=== PATIENT | male | born 1995 | race Two or more races ===

== ENCOUNTER 2024-01-14 21:41 | Emergency (ER) | payer OTHER ==
[~2024-01-14] VITALS: Ht 172.7 cm; Wt 116.8 kg
[2024-01-15] MEDS ORDERED: HYDR-4902 PO (04:02)
[2024-01-15] MEDS: HYDROcodone-ACET 5/325MG TAB PO ONE (05:02)
[2024-01-15] MEDS: KETOROLAC TROMETH 60MG/2ML VIAL IM ONE (05:02)
[2024-01-15] MEDS: DexAMETHasone SOD PHOS 10MG/1ML VIAL INJ IM ONE (05:02)
[2024-01-15 06:07] VITALS: BP 135/78; PULSE 78; RESP 18; TEMP 98; O2SAT 96
== END 2024-01-15 06:15 | disposition home or self-care (01) ==
LOC: ER 21:41
DX: G89.29 Other chronic pain (principal); M25.521 Pain in right elbow; M77.9 Enthesopathy, unspecified
CPT/HCPCS: 96372; 99284; J1100; J1885